=== PATIENT | male | born 1950 | race African-American/Black ===

== ENCOUNTER 2018-02-02 08:58 | Day surgery (SDC) | payer OTHER ==
[2018-02-02] MEDS ORDERED: FENTAnyl 50 MCG/ML VIAL (09:57)
[2018-02-02] MEDS ORDERED: PROPOFOL 20 ML (09:57)
[2018-02-02] MEDS ORDERED: MIDAZOLAM 1 MG/ML 2 ML INJ (09:57)
== END 2018-02-02 12:59 | disposition home or self-care (01) ==
LOC: GIL 08:58
DX: Z12.11 Encounter for screening for malignant neoplasm of colon (principal); D12.7 Benign neoplasm of rectosigmoid junction; K64.8 Other hemorrhoids; K62.1 Rectal polyp; I10 Essential (primary) hypertension
CPT/HCPCS: 45380; 88305

== ENCOUNTER 2019-04-01 08:22 | Emergency (ER) | payer OTHER ==
[2019-04-01] MEDS: KETOROLAC 30 MG INJ IM (08:56)
== END 2019-04-01 09:03 | disposition home or self-care (01) ==
LOC: FTE 09:03
DX: S39.012A Strain of muscle, fascia and tendon of lower back, initial encounter (principal); I10 Essential (primary) hypertension; F17.210 Nicotine dependence, cigarettes, uncomplicated; M62.830 Muscle spasm of back; X50.0XXA Overexertion from strenuous movement or load, initial encounter; Y92.9 Unspecified place or not applicable
CPT/HCPCS: 96372; 99284-25